=== PATIENT | female | born 1985 | race Caucasian/White ===

== ENCOUNTER 2017-03-30 16:35 | Emergency (ER) | payer OTHER ==
[~2017-03-30] VITALS: Ht 167.6 cm; Wt 114.8 kg
[2017-03-30 16:41] VITALS: BP 141/90
[2017-03-30] MEDS ORDERED: CLINDAMYCIN 300 MG CAPSULE PO ONE (17:30)
== END 2017-03-30 19:04 | disposition home or self-care (01) ==
LOC: ED 18:40
DX: S16.1XXA Strain of muscle, fascia and tendon at neck level, initial encounter (principal); V49.9XXA Car occupant (driver) (passenger) injured in unspecified traffic accident, initial encounter; Y93.89 Activity, other specified; Y92.410 Unspecified street and highway as the place of occurrence of the external cause; Y99.8 Other external cause status
CPT/HCPCS: 72110; 72125; 99284